=== PATIENT | male | born 1990 | race African-American/Black ===

== ENCOUNTER 2020-04-30 20:13 | Inpatient (IN) ==
[2020-04-30 20:51] LABS: Bacteria,Urine Few per hpf (None-Few); Bilirubin,Urine Negative (Negative); Blood,Urine Negative (Negative); Clarity,Urine Clear (Clear); Color,Urine Light-Orange (Yellow); Glucose,Urine (UA) Normal (Normal); Ketones,Urine Negative (Negative); Leukocyte Esterase,Urine Negative (Negative); Mucus,Urine Many per lpf (None-Few); Nitrite,Urine Negative (Negative); PH,Urine 6.5 pH Units (5.0-8.0); Protein,Urine 50 mg/dL (Neg-Trace); RBC,Urine 0-3 per hpf (0-3); Specific Gravity,Urine > 1.030 (1.010-1.025); WBC,Urine 0-3 per hpf (0-3)
[2020-04-30 20:52] LABS: Basophils % 0.7 %; Eosinophils # 0.1 K/mcL (0.0-0.6); Eosinophils % 2.2 %; Hematocrit 48.6 % (37.5-50.1); Hemoglobin 16.1 g/dL (12.9-16.9); Lymphocytes # 1.2 K/mcL (0.6-4.6); Lymphocytes % 28.1 %; Mean Corpuscular HGB Conc 33.1 g/dL (31.6-35.5); Mean Corpuscular Hemoglobin 30.1 pg (28.0-33.3); Mean Platelet Volume 9.4 fL (9.4-12.4); Monocytes # 0.5 K/mcL (0.0-1.3); Monocytes % 11.2 %; Neutrophils # 2.4 K/mcL (1.6-8.9); Platelet Count 306 K/mcL (140-400); Red Blood Count 5.34 M/mcL (4.19-5.50); Red Cell Distribution Width 11.2 % (11.5-14.5); Segmented Neutrophils % 57.8 %; White Blood Count 4.1 K/mcL (4.3-11.1)
[2020-04-30 21:01] LABS: Amphetamine Screen,Urine Negative ng/mL (Cutoff=1000); Barbiturate Screen,Urine Negative ng/mL (Cutoff=200); Benzodiazepines Screen,Urine Negative ng/mL (Cutoff=200); Cannabinoid Screen,Urine Negative ng/mL (Cutoff = 50); Cocaine Screen,Urine Negative ng/mL (Cutoff= 300); Opiate Screen,Urine Negative ng/mL (Cutoff=300); Phencyclidine Screen,Urine Negative ng/mL (Cutoff=25)
[2020-04-30 21:11] LABS: Acetaminophen < 10 mcg/mL (10-20); BUN/Creatinine Ratio 17 (6-26); Blood Urea Nitrogen 18 mg/dL (6-20); Calcium 10.1 mg/dL (8.6-10.3); Carbon Dioxide 28 mEq/L (23-29); Chloride 103 mEq/L (98-107); Ethanol < 10 mg/dL (Less than 10); Glucose 101 mg/dL (70-105); Osmolality,Calculated 286 (280-300); Potassium 4.4 mEq/L (3.5-5.1); Salicylate < 2.5 mg/dL (15.0-30.0); Sodium 137 mEq/L (136-145); eGFR For African Americans > 60 (> 60); eGFR For Non-African Americans > 60 (> 60)
[2020-04-30] MEDS ORDERED: Ibuprofen 400 MG TABLET PO PRN (22:38)
[2020-04-30] MEDS ORDERED: *HR* LORazepam 2 MG/ML VIAL IM PRN (22:38)
[2020-04-30] MEDS ORDERED: *HR* LORazepam 1 MG TABLET PO PRN (22:38)
[2020-04-30] MEDS ORDERED: Acetaminophen 325 MG TABLET PO PRN (22:38)
[2020-04-30] MEDS ORDERED: Haloperidol Lactate 5 MG/ML VIAL IM PRN (22:38)
[2020-04-30] MEDS ORDERED: haloperidoL 5 MG TABLET PO PRN (22:38)
[2020-04-30] MEDS ORDERED: Mag Hydrox/Al Hydrox/Simeth 30 ML UDC PO PRN (22:38)
[2020-04-30] MEDS ORDERED: traZODone 50 MG TABLET PO PRN (22:38)
[2020-04-30] MEDS ORDERED: hydrOXYzine pamoate 25 MG CAPSULE PO PRN (22:38)
[2020-04-30] MEDS ORDERED: QUEtiapine Fumarate 25 MG TABLET PO PRN (22:38)
[2020-04-30] MEDS ORDERED: MOM Conc 10 ML UD.LIQ PO PRN (22:38)
[2020-05-01] MEDS ORDERED: cloNIDine HCL 0.1 MG TABLET PO ONE (10:46)
[2020-05-03] MEDS: Divalproex (24 HR) 500 MG TABLET PO SCH (20:08)
[2020-05-04] MEDS: Divalproex (24 HR) 500 MG TABLET PO SCH (20:16)
[2020-05-05 09:46] VITALS: BP 126/90
== END 2020-05-05 11:15 | disposition home or self-care (01) | DRG 885 ==
LOC: EMEROOARM 20:13 → 1ANU 22:26 → MERGE 22:26 → 1ANU 23:00
PROVIDERS: ADMIT Psychiatry & Neurology Psychiatry; ATTEND Psychiatry & Neurology Psychiatry